=== PATIENT | female | born 1955 | race Caucasian/White ===

== ENCOUNTER 2017-07-01 09:54 | Emergency (ER) | payer OTHER ==
[2017-07-01 10:27] VITALS: BP 140/82; PULSE 65; TEMP 98.7; BMI 20.1
--- NOTE | 2017-07-01 11:01 | PDOC ---
History of Present Illness - General Chief Complaint: Injury Stated Complaint: FALL/ RT FOOT INJURY Time Seen by Provider: 07/01/17 10:34 History Source: Patient Exam Limitations: No Limitations - History of Present Illness Initial Comments: 07/01/17 10:58 61-year-old female here for reevaluation secondary to fracture of the right ankle which she sustained on [place]. Patient currently is in wearing an Edmundo wrap with an Aircast but due to lack of insurance she did not follow up with an orthopedist. Son states patient has insurance now and is requesting orthopedic consultation. Patient has no complaints of worsening pain, swelling sensory changes distal of injury. Patient denies history of diabetes and states hasn't needed to take anything for pain for the past week. Occurred: reports: other Severity: reports: mild Pain Location: reports: lower extremity Method of Injury: Yes: fall Associated Symptoms (Fall): trouble walking Past History - Travel Traveled outside of the country in the last 30 days: No - Past Medical History Allergies/Adverse Reactions: Allergies Allergy/AdvReac Type Severity Reaction Status Date / Time No Known Allergies Allergy Verified 07/01/17 10:22 COPD: No DVT: No Dementia: No - Surgical History Abdominal Surgery: Yes (tubal ligation) - Immunization History Immunization Up to Date: Yes - Suicide/Smoking/Psychosocial Hx Smoking History: Never smoked Have you smoked in the past 12 months: No Information on smoking cessation initiated: No Hx Alcohol Use: No Drug/Substance Use Hx: No Substance Use Type: None Patient Lives Alone: No Review of Systems - Review of Systems Able to Perform ROS?: No Constitutional: No: Symptoms Reported Musculoskeletal: Yes: Joint Pain (Right ankle) Integumentary: No: Symptoms Reported Neurological: No: Symptoms reported *Physical Exam - Vital Signs Last Vital Signs Temp Pulse Resp BP Pulse Ox 98.7 F 65 63 H 140/82 100 07/01/17 10:23 07/01/17 10:23 07/01/17 10:23 07/01/17 10:23 07/01/17 10:23 - Physical Exam General Appearance: Yes: Nourished, Appropriately Dressed. No: Apparent Distress Vascular Pulses: Dorsalis-Pedis (R): 2+ Extremity: positive: Normal Capillary Refill, Normal Inspection, Tender ( lateral aspect of right malleolus). negative: Normal Range of Motion (unable to internally or externally rotate right malleolus) Integumentary: positive: Normal Color, Warm, Moist, Swelling (mild to lateral aspect of right malleolus) ED Treatment Course - RADIOLOGY Radiology Studies Ordered: Category Date Time Status ANKLE-RIGHT [RAD] Stat Radiology 07/01/17 10:55 Ordered Medical Decision Making - Medical Decision Making 07/01/17 11:01 Patient here for reevaluation of right ankle fracture. Patient denies worsening symptoms. Patient currently in Aircast with Edmundo wrap. Patient ordered for repeat x-ray for comparison and will be given ortho referral. 07/01/17 11:18 X-ray shows a nondisplaced distal fibula fracture. Patient continue to wear the Aircast and Edmundo wrap and will be referred to Dr. rodriguez. *DC/Admit/Observation/Transfer Diagnosis at time of Disposition: Fracture, fibula Qualifiers: Encounter type: initial encounter Fibula location: distal Fracture type: closed Laterality: right - Discharge Dispostion Disposition: HOME Condition at time of disposition: Good - Referrals Referrals: Eleazar Rodriguez MD [Staff Physician] - - Patient Instructions Printed Discharge Instructions: DI for Ankle Fracture Additional Instructions: Please continue to wear the Aircast and Edmundo wrap as previously supplied. Please follow-up with Dr. Rodriguez by contacting and number listed on your discharge instructions. - Post Discharge Activity
== END 2017-07-01 11:31 | disposition home or self-care (01) ==
LOC: JERFT 09:54 → JER 09:54 → JERFT 11:31
DX: S82.86 Maisonneuve's fracture (principal); W19.XXXD Unspecified fall, subsequent encounter
CPT/HCPCS: 73610-TC-RT-FY; 99281-25